=== PATIENT | female | born 2005 | race Caucasian/White ===

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

== ENCOUNTER → 2025-02-02 | Outpatient (CLI) | payer BC ==
--- NOTE | 2025-02-02 14:48 | US ---
EXAMINATION TYPE: US transvaginal DATE OF EXAM: 02/02/2025 COMPARISON: NONE CLINICAL INDICATION: Female, 19 years old with history of N94.6 DYSMENORRHEA, UNSPEC; Painful, heavy, irregular periods. G0 TECHNIQUE: Transvaginal (TV). Doppler imaging: Not performed. FINDINGS: Date of LMP: 01/23/2025 EXAM MEASUREMENTS: Uterus: 7.8 x 3.7 x 2.6 cm Endometrial Stripe: 0.52 cm Right Ovary: 3.7 x 2.7 x 2.8 cm Left Ovary: 3.3 x 1.8 x 1.9 cm 1. Uterus: Anteverted *Anechoic fluid seen in cervix: 2.7 x 0.7 x 0.3 cm. Subcentimeter anechoic area seen in cervix. 2. Endometrium: 0.52 cm. Appears wnl 3. Right Ovary: *Hypoechoic, solid appearing area seen: 2.5 x 2.3 x 1.8 cm. Anechoic follicle seen. 4. Left Ovary: Follicles seen 5. Bilateral Adnexa: Appear wnl 6. Posterior cul-de-sac: Appears wnl IMPRESSION: 1. No evidence for acute process. Right ovarian solid appearance possibly including hemorrhagic foll icle. Short-term follow-up in 3-6 months recommended. 2. Endometrium within normal limits for thickness. [facility], , 02/02/2025 2:45 PM
== END | disposition home or self-care (01) ==
LOC: RADUSWWP 13:51
PROVIDERS: ATTEND Family Medicine
DX: N94.6 Dysmenorrhea, unspecified (principal); N92.6 Irregular menstruation, unspecified
CPT/HCPCS: 76830